=== PATIENT | female | born 1985 | race Two or more races ===

== ENCOUNTER 2021-11-29 14:15 | Emergency (ER) | payer OTHER ==
[2021-11-29 17:04] LABS: BILIRUBIN NEGATIVE (NEGATIVE); BLOOD TRACE-INTACT Ery/uL (NEGATIVE); CLARITY CLEAR (CLEAR); COLOR YELLOW (YELLOW); GLUCOSE (U) NORMAL (NORMAL); LEUKOCYTES 2+ Leu/uL (NEGATIVE); NITRITE NEGATIVE (NEGATIVE); PROTEIN NEGATIVE (NEGATIVE); UROBILINOGEN 0.2 mg/dL (0.2-1.0)
[2021-11-29 17:09] LABS: BACTERIA TRACE; URINARY RBC RARE
[2021-11-29] MEDS ORDERED: BACTRIM DS TAB1 EACH PO ×2 (17:46→21:06)
== END 2021-11-29 17:59 | disposition home or self-care (01) ==
LOC: FER 14:15
PROVIDERS: Emergency Medicine
DX: N39.0 Urinary tract infection, site not specified (principal); Z28.310 Unvaccinated for COVID-19
CPT/HCPCS: 81001; 87088; 99283

== ENCOUNTER → 2021-12-23 | Day surgery (SDC) | payer OTHER ==
[~2021-12-23] VITALS: Ht 154.9 cm; Wt 66.2 kg
[~2021-12-23] MED LIST: AUGMENTIN 500-1 EACH PO; BACTRIM DS TAB1 EACH PO
[2021-12-23 13:46] LABS: HCG (URINE) SCREEN NEGATIVE (NEGATIVE)
== END | disposition home or self-care (01) ==
LOC: FAS 12:08
PROVIDERS: Anesthesiology
DX: C18.7 Malignant neoplasm of sigmoid colon (principal); K64.8 Other hemorrhoids; K64.4 Residual hemorrhoidal skin tags
CPT/HCPCS: 84703; J1100; J2704; J7120

== ENCOUNTER 2022-01-09 12:57 | Inpatient (IN) | payer OTHER ==
[~2022-01-09] VITALS: Ht 160 cm; Wt 63.0 kg
[2022-01-09 14:22] LABS: HCG (URINE) SCREEN NEGATIVE (NEGATIVE)
[2022-01-09 14:33] LABS: INR 1.09 (0.9-1.2); PROTHROMBIN TIME 13.8 SECONDS (11.9-13.9); PTT 29.4 SECONDS (24.9-34.6)
[2022-01-09 23:17] LABS: BILIRUBIN NEGATIVE (NEGATIVE); BLOOD NEGATIVE Ery/uL (NEGATIVE); CLARITY CLEAR (CLEAR); COLOR YELLOW (YELLOW); GLUCOSE (U) NORMAL (NORMAL); LEUKOCYTES NEGATIVE Leu/uL (NEGATIVE); NITRITE NEGATIVE (NEGATIVE); PROTEIN NEGATIVE (NEGATIVE); SPECIFIC GRAVITY 1.025 (1.001-1.030); UROBILINOGEN 0.2 mg/dL (0.2-1.0)
[2022-01-10 06:13] LABS: BASOPHIL 0.1 % (0-2); EOSINOPHIL 0 % (0-5); HCT 36.4 % (37.0-47.0); HGB 12.4 g/dl (12.5-16.0); LYMPHOCYTE 6.6 % (15-48); MCH 30.7 pg (25.0-31.0); MCHC 34.1 g/dL (32.0-36.0); MCV 90.1 fL (78.0-100.0); MONOCYTE 3.1 % (0-12); MPV 9.3 fL (6.0-9.5); NEUTROPHIL 89.8 % (41-80); NRBC 0; PLT 331 K/uL (150-400); RBC 4.04 M/uL (4.20-5.40); RDW 12.3 % (11.5-14.0); WBC 16.2 K/uL (4.0-10.5)
[2022-01-10 07:02] LABS: BILIRUBIN - TOTAL 0.5 mg/dL (0.2-1.0); BUN/CREAT RATIO (CALC) 11.1 RATIO; CREATININE 0.54 mg/dL (0.51-0.95); POTASSIUM 3.9 mmol/L (3.5-5.1)
[2022-01-11 06:23] LABS: BASOPHIL 0.4 % (0-2); EOSINOPHIL 0.7 % (0-5); HCT 34.3 % (37.0-47.0); HGB 11.8 g/dl (12.5-16.0); LYMPHOCYTE 29.2 % (15-48); MCH 31.5 pg (25.0-31.0); MCHC 34.4 g/dL (32.0-36.0); MCV 91.5 fL (78.0-100.0); MONOCYTE 6.6 % (0-12); MPV 9.7 fL (6.0-9.5); NEUTROPHIL 62.7 % (41-80); NRBC 0; PLT 270 K/uL (150-400); RBC 3.75 M/uL (4.20-5.40); RDW 12.5 % (11.5-14.0); WBC 8.5 K/uL (4.0-10.5)
[2022-01-11 06:44] LABS: BUN/CREAT RATIO (CALC) 13.7 RATIO; CREATININE 0.51 mg/dL (0.51-0.95); MAGNESIUM 1.8 mg/dL (1.8-2.4); PHOSPHORUS 2.2 mg/dL (2.6-4.7); POTASSIUM 3.2 mmol/L (3.5-5.1)
[2022-01-12 08:25] LABS: BUN/CREAT RATIO (CALC) 10.9 RATIO; CREATININE 0.46 mg/dL (0.51-0.95); POTASSIUM 3.7 mmol/L (3.5-5.1)
[2022-01-12 12:27] LABS: HCT 34.2 % (37.0-47.0); HGB 11.7 g/dl (12.5-16.0); MCH 31.8 pg (25.0-31.0); MCHC 34.2 g/dL (32.0-36.0); MCV 92.9 fL (78.0-100.0); MPV 9.9 fL (6.0-9.5); RBC 3.68 M/uL (4.20-5.40); RDW 12.5 % (11.5-14.0); WBC 8.4 K/uL (4.0-10.5)
[2022-01-13] MEDS ORDERED: LOVENOX40 MG/0.4 SC (12:21)
[2022-01-13] MEDS ORDERED: PERCOCET 5-3251 EACH PO (16:18)
== END 2022-01-13 17:37 | disposition home health service (06) | DRG 330 ==
LOC: FAS 12:57 → FTCU 22:15 → FAS 01-10 10:12 → FMS 01-11 12:28
PROVIDERS: Nurse Practitioner; Student in an Organized Health Care Education/Training Program; ADMIT Internal Medicine
PROC: 0DJD8ZZ Inspection of Lower Intestinal Tract, Via Natural or Artificial Opening Endoscopic (ICD-10-PCS; 2022-01-09)
PROC: 0DTN4ZZ Resection of Sigmoid Colon, Percutaneous Endoscopic Approach (ICD-10-PCS; principal; 2022-01-09 12:00)
PROC: 0DBP4ZZ Excision of Rectum, Percutaneous Endoscopic Approach (ICD-10-PCS; 2022-01-09 12:00)
PROC: 0D1B4Z4 Bypass Ileum to Cutaneous, Percutaneous Endoscopic Approach (ICD-10-PCS; 2022-01-09 12:00)
DX: C19 Malignant neoplasm of rectosigmoid junction (principal); K56.7 Ileus, unspecified; K91.89 Other postprocedural complications and disorders of digestive system; Z20.822 Contact with and (suspected) exposure to COVID-19; R51.9 Headache, unspecified; K64.4 Residual hemorrhoidal skin tags; Z90.710 Acquired absence of both cervix and uterus
CPT/HCPCS: 36415; 80048; 80053; 81003; 83735; 84100; 84703; 85025; 85610; 85730; 86850; 86900; 86901; 94010; 94760; C9113; J0690; J1100; J1170; J1644; J1650; J1885; J2250; J2405; J2704; J3010; J7120

== ENCOUNTER → 2022-02-01 | Day surgery (SDC) | payer OTHER ==
[~2022-02-01] VITALS: Ht 160 cm; Wt 58.0 kg
[~2022-02-01] MED LIST changes: +LOVENOX40 MG/0.4 SC; +PERCOCET 5-3251 EACH PO
[2022-02-01 06:39] LABS: HCG (URINE) SCREEN NEGATIVE (NEGATIVE)
== END | disposition home or self-care (01) ==
LOC: EDBD 06:04 → FAS 06:04 → EDBD 07:00
PROVIDERS: Anesthesiology
DX: C18.9 Malignant neoplasm of colon, unspecified (principal); Z93.2 Ileostomy status; Z79.01 Long term (current) use of anticoagulants
CPT/HCPCS: 71045; 76000; 84703; C1788; J0690; J1100; J1170; J1644; J1885; J2001; J2250; J2405; J2704; J3010; J7120